=== PATIENT | female | born 1960 | race Caucasian/White ===

== ENCOUNTER → 2017-07-31 | Outpatient (CLI) | payer MEDICAID ==
[~2017-07-31] MED LIST: ALPRAZOLAM PO; ASPIRIN PO; CALTRATE 600+D PO; CARDIZEM CD PO; CINNAMON; CLARITIN D; CLARITIN D PO; DEXFOL PO; EFFEXOR PO; FLEXERIL PO; MAGNESIUM500 MG; METFORMIN HCL500 M1; MULTI-VIT/MIN P1 TAB PO; OYSTER CALCIUM500 MG PO; VIT E PO; VITAMIN D 4001 UDTAB PO; XANAX0.5 MG; ZOLOFT PO
--- NOTE | ~2017-07-31 | MY29 ---
[facility] A Service of [facility] RADIOLOGY TEXT RESULTS PATIENT: BARRON TEJEDA LOCATION: [facility] : 56 UNIT #: [id number] AGE: [address]: Cristo Hamm MD SEX: F ORDER DR: [id number] [facility] [address] [place], [place] [address] [id number] O MR#: [id number] Acc #: [id number] NAME: BARRON TEJEDA : 1960 SEX: F STUDY DATE/TIME: 07/31/2017 13:35 UNIT: [facility] ROOM: STUDY DESCRIPTION: MY [place] SCREENING W/ CAD BILAT Attending Physician: Cristo Hamm M.D. Ordering Physician: Cristo Hmam M.D. Primary Care Physician: Critso Hamm M.D. MEDICAL IMAGING REPORT This report is preliminary unless electronic signature is present EXAM Bilateral digital screening mammogram with CAD 07/31/2017 INDICATIONS 57-year-old female for routine screening. No reported problems and no personal or family history of breast cancer. No surgeries. TECHNIQUE CC and MLO views of the breasts were obtained and reviewed with an FDA-approved CAD device. COMPARISON 04/24/2012, 01/15/2011, 11/27/2009 FINDINGS Breast parenchyma is composed of scattered fibroglandular densities. The pattern is unchanged. There is no new dominant nodule or mass in either breast. There are benign calcifications. In the 6 o'clock middle third depth position, left breast, there is a new grouping of microcalcifications. They warrant further evaluation with spot magnification views and a true lateral view. IMPRESSION New microcalcifications in the 6 o'clock position left breast. Further characterization with spot magnification views and a true lateral view recommended. Patients over the age of 40 are entered into a reminder system with target due date for the next mammogram. A result letter will also be sent to the patient. BIRADS: 0 Incomplete; need additional imaging evaluation and/or prior mammograms for comparison. [facility] A Service of [facility] RADIOLOGY TEXT RESULTS PATIENT: BARRON TEJEDA LOCATION: [facility] : 56 UNIT #: [id number] AGE: [address]: Cristo Hamm MD SEX: F ORDER DR: Dictated by... Oskar Rogers M.D. THIS IS AN ELECTRONICALLY VERIFIED REPORT Oskar Rogers M.D. at 08/01/2017 3:10 PM Linda TD: 07/31/2017 17:32 JOB #: [id number] MEDICAL IMAGING REPORT Page 1 of 1 COPY
== END | disposition home or self-care (01) ==
LOC: CWCC 13:09
DX: Z12.31 Encounter for screening mammogram for malignant neoplasm of breast (principal); R92.0 Mammographic microcalcification found on diagnostic imaging of breast
CPT/HCPCS: G0202

== ENCOUNTER → 2017-08-18 | Outpatient (CLI) | payer MEDICAID ==
--- NOTE | ~2017-08-18 | MY7 ---
[facility] A Service of [facility] RADIOLOGY TEXT RESULTS PATIENT: BARRON TEJEDA LOCATION: [facility] : 56 UNIT #: [id number] AGE: [address]: Greg Trujillo MD SEX: F ORDER DR: [id number] [facility] [address] [place], [place] [address] [id number] O MR#: [id number] Acc #: [id number] NAME: BARRON TEJEDA : 1960 SEX: F STUDY DATE/TIME: 08/18/2017 11:34 UNIT: [facility] ROOM: STUDY DESCRIPTION: MY Mammogram Dx Dig Lt Attending Physician: Greg Trujillo M.D. Referring Physician: Sharon Trujillo M.D. Ordering Physician: Greg Trujillo M.D. Primary Care Physician: Cristo Hamm M.D. MEDICAL IMAGING REPORT This report is preliminary unless electronic signature is present EXAM Diagnostic left mammogram, 08/18/2017 INDICATION Patient presents for further evaluation of new calcifications at the 6 o'clock position of the left breast seen on screening mammogram. FINDINGS Magnification CC and ML views of the left breast were obtained in addition to a standard true lateral view. Comparison is made with 07/31/2017 and 04/24/2012. Calcifications are well seen on these additional images and overall appear coarse and benign. There are a few tiny adjacent microcalcifications. These are also probably benign. As a precaution, I would recommend a 6-month followup mammogram of the left breast with magnification views to document stability. Findings and recommendations were discussed with the patient at the time of her examination today. IMPRESSION Probably benign mammogram. 6-month followup mammogram of the left breast with magnification views is recommended. Patients over the age of 40 are entered into a reminder system with target due date for the next mammogram. A result letter will also be sent to the patient. BIRADS: 3 Probably benign finding; short interval followup suggested. Dictated by... [facility] A Service [facility] RADIOLOGY TEXT RESULTS PATIENT: BARRON TEJEDA LOCATION: [facility] : 56 UNIT #: [id number] AGE: [address]: Greg Trujillo MD SEX: F ORDER DR: Chacho Boucher Jr., M.D. THIS IS AN ELECTRONICALLY VERIFIED REPORT Chacho Boucher Jr., M.D. at 08/19/2017 4:38 PM JACOB/remi TD: 08/18/2017 23:03 JOB #: [id number] MEDICAL IMAGING REPORT Page 1 of 1 COPY
== END | disposition home or self-care (01) ==
LOC: CMAM 11:22
DX: R92.0 Mammographic microcalcification found on diagnostic imaging of breast (principal)
CPT/HCPCS: G0206